=== PATIENT | male | born 2000 | race Caucasian/White ===

== ENCOUNTER 2020-04-18 15:49 | Emergency (ER) | payer OTHER, BC ==
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
[2020-04-18] MEDS ORDERED: Sodium Chloride 0.9% 1,000 ML IV ONE (17:05)
[2020-04-18] MEDS ORDERED: Sodium Chloride 0.9% 10 ML Syringe FLUSH PRN (17:05)
== END 2020-04-18 17:30 | disposition home or self-care (01) ==
LOC: LB.ED 15:49
DX: T67.5XXA Heat exhaustion, unspecified, initial encounter (principal)
CPT/HCPCS: 36415; 80053; 85025; 93005; 99283; 99284-25; A0425; A0429